=== PATIENT | female | born 1955 | race Caucasian/White ===

== ENCOUNTER 2016-12-17 17:44 | Emergency (ER) | payer BC ==
[~2016-12-17] VITALS: Ht 160 cm; Wt 71.8 kg
[~2016-12-17 17:44] MED LIST: ABILIFY2 MG PO; ALEVE220 MG PO; AMBIEN10 M1 PO; AMBIEN10 MG PO; Ambien PO; EFFEXOR XR150 MG PO; EXTRA STRENGTH500 M1 PO; Effexor PO; Imitrex PO; KLONOPIN1 MG PO; KlonoPIN PO; LamiSIL PO; PREVACID30 MG PO; PROTONIX40 MG PO; Protonix PO; VICODIN 5/325 PO; WELLBUTRIN XL300 MG PO; WELLBUTRIN100 MG PO; Wellbutrin XL PO
[2016-12-17 18:54] LABS: EOSINOPHIL (%) 1.3 % (0-5); EOSINOPHIL COUNT 0.1 K/uL (0-0.3); HEMATOCRIT 41.5 % (36.0-46.0); IMMATURE GRANULOCYTE (%) 0.2 % (0.0-0.7); INSTRUMENT ABS NEUTROPHIL CT 6.8 K/uL; LYMPHOCYTE COUNT 1.8 K/uL (1.0-2.8); MCH 24.8 PG (29.0-34.0); MCV 77.3 FL (83-99); MEAN PLAT.VOLUME 9.4 uM^3 (9.5-12.4); MONOCYTE (%) 8.1 % (3-12); MONOCYTE COUNT 0.8 K/uL (0-0.8); NEUTROPHIL (%) 70.9 % (45-76); NEUTROPHIL COUNT 6.8 K/uL (1.8-6.4); PLATELET COUNT 406 K/uL (156-360); RBC DIS.WIDTH-SD 38.9 % (39-53); RED BLOOD COUNT 5.37 M/uL (3.80-5.20); WHITE BLOOD COUNT 9.6 K/uL (4.1-10.2)
[2016-12-17 19:10] LABS: CHLORIDE 92 mEq/L (99-109); POTASSIUM 3.3 mEq/L (3.7-5.4); SODIUM 132 mEq/L (136-147)
[2016-12-17 19:12] LABS: GLUCOSE 107 mg/dL (70-99)
[2016-12-17 19:13] LABS: ANION GAP 13 MEQ/L (2-14)
[2016-12-17 19:14] LABS: TOTAL BILIRUBIN 0.4 mg/dL (0.0-1.0)
[2016-12-17 19:16] LABS: ALKALINE PHOSPHATASE 80 IU/L (3-129); GFR ESTIMATE (CALCULATED) > 59 mL/min/
[2016-12-17 19:17] LABS: UREA NITROGEN (BUN) 12 mg/dL (9-23)
[2016-12-17 19:19] LABS: LIPASE 18 U/L (1.0-51.0)
[2016-12-17 20:30] LABS: ADD MIUA? YES; BILIRUBIN NEGATIVE; BLOOD NEGATIVE; COLOR YELLOW ((YELLOW)); GLUCOSE (STRIP) NEGATIVE; KETONES 20; LEUKOCYTES LARGE; NITRITE NEGATIVE; PROTEIN (STRIP) 100; SPECIFIC GRAVITY 1.017 (1.000-1.030); UROBILINOGEN 0.2 MG/DL (0.2-1.0)
[2016-12-17 21:23] LABS: CASTS PRESENT /LPF; EPITHELIAL CELLS 3+ /HPF; FINE GRANULAR CASTS 0-5 /LPF; MUCUS 2+ /LPF
[2016-12-17 21:24] LABS: RED BLOOD CELLS NONE SEEN /HPF (0-5); WHITE BLOOD CELLS 15-20 /HPF (0-5)
[2016-12-17 21:25] LABS: BACTERIA 1+ /HPF; UCUL ADDED? YES
[2016-12-17] MEDS ORDERED: KEFLEX500 MG PO (22:25)
[2016-12-17 23:14] VITALS: BP 165/89
== END 2016-12-17 23:16 | disposition home or self-care (01) ==
LOC: EME 17:44
PROVIDERS: Physician Assistant
DX: N39.0 Urinary tract infection, site not specified (principal); K21.9 Gastro-esophageal reflux disease without esophagitis; F32.9 Major depressive disorder, single episode, unspecified; F41.9 Anxiety disorder, unspecified; Z90.710 Acquired absence of both cervix and uterus; Z98.890 Other specified postprocedural states
CPT/HCPCS: 74177; 80053; 81003; 83605; 83690; 85025; 87040; 87086; 99281; 99285; J1200; J2765; J7040